=== PATIENT | male | born 1960 | race African-American/Black ===

== ENCOUNTER 2018-11-16 06:58 | Day surgery (SDC) | payer BC ==
[2018-11-15 11:06] VITALS: BMI 39.5
--- NOTE | 2018-11-16 01:49 | HP ---
HISTORY OF PRESENT ILLNESS: This is a 58-year-old male, comes in for colonoscopy because of history of colon polyps, polypectomy in the past. At the present time, Mr. Crystal has no specific GI symptoms. His bowel movements are regular. ALLERGIES: NONE. MEDICAL ILLNESS: 1. Obesity. 2. Hypertension. 3. Colon polyp. PHYSICAL EXAMINATION: VITAL SIGNS: Pulse is 70, blood pressure is 130/80. HEENT: Conjunctivae are clear. CARDIOVASCULAR: Within normal limits. LUNGS: Within normal limits. ABDOMEN: Soft. No organomegaly. No tenderness. No masses. EXTREMITIES: Reveal no edema. ADMITTING DIAGNOSIS: A 58-year-old male, comes for a colonoscopy with history of colon polyps. Job ID: [id number]
[2018-11-16] MEDS ORDERED: PROPOFOL 200 MG/20 ML VIAL ONE (13:50)
--- NOTE | 2018-11-16 15:03 | OP ---
DATE OF PROCEDURE: 11/16/2018 PROCEDURE PERFORMED: Colonoscopy. PREOPERATIVE DIAGNOSIS: A 58-year-old male with removal of a large broad-based sessile polyp 3 years ago. The patient undergoing followup colonoscopy. POSTOPERATIVE DIAGNOSIS: Normal colonoscopy. DESCRIPTION OF PROCEDURE: The patient was placed on his left lateral position and was given sedation by Anesthesia Department. A rectal exam was done before the scope was advanced into the rectum. No lesions felt on rectal exam. A [employer] video colonoscope was introduced into the rectum and advanced all the way to the cecum. The prep was excellent. The mucosa appears normal throughout the colon with normal vascular pattern. The appendiceal orifice, ileocecal wall, and cecum well seen. No pathology seen. Withdrawal of scope in the cecum, ascending colon, hepatic flexure, no pathology seen. Transverse colon, splenic flexure, descending colon, sigmoid colon, no pathology seen. The patient had a broad-based sessile polyp removed 3 years ago and the sigmoid colon appears free of any polyps. The rectum showed no lesions. DISCHARGE PLAN: A 58-year-old male, came for colonoscopy because of previous colonoscopy with polypectomy. The colonoscopy revealed no pathology. DISCHARGE RECOMMENDATIONS: 1. The patient advised to call me if he develops abdominal pain, hematochezia, or fever. 2. In the absence of any other symptoms, come back to me in 2 weeks. 3. Recommend repeat colonoscopy in 5 years. Job ID: [id number]
== END 2018-11-16 10:35 | disposition home or self-care (01) ==
LOC: SDC 06:58
PROVIDERS: ATTEND Internal Medicine Gastroenterology
PROC: 0DJD8ZZ Inspection of Lower Intestinal Tract, Via Natural or Artificial Opening Endoscopic (ICD-10-PCS; principal; 2018-11-16)
DX: Z09 Encounter for follow-up examination after completed treatment for conditions other than malignant neoplasm (principal); I10 Essential (primary) hypertension; E66.9 Obesity, unspecified; Z68.39 Body mass index [BMI] 39.0-39.9, adult; Z86.010 Personal history of colon polyps; Z79.899 Other long term (current) drug therapy